=== PATIENT | male | born 1955 | race Caucasian/White ===

== ENCOUNTER 2018-05-01 06:17 | Day surgery (SDC) | payer BC ==
[2018-05-01] MEDS: PHENYLEPHRINE 2.5% OPHTH SOL 2ML OD (06:50)
[2018-05-01] MEDS: TROPICAMIDE 1% OPHTH SOLN 2ML OD (06:50)
[2018-05-01] MEDS: PROPARACAINE 0.5% OPHTH SOL 15ML OD (06:50)
[2018-05-01] MEDS: OFLOXACIN 0.3 % (OCUFLOX) OPTH SOL 5ML OD (06:50)
[2018-05-01] MEDS ORDERED: fentaNYL 100 MCG/2 ML INJECTION (J3010) As Ordered (06:59)
[2018-05-01] MEDS ORDERED: MIDAZOLAM INJ 2 MG/2 ML VIAL (J2250) As Ordered (06:59)
[2018-05-01] MEDS: CEFUROXIME 1MG/0.1ML INTRACAMERAL INJ As Ordered (07:40)
[2018-05-01] MEDS: POVIDONE-IODINE 5% OPHTH PREP SOL 30ML As Ordered (07:40)
[2018-05-01] MEDS: BALANCED SALT IRRIGATION SOLUTION 500ML BAG (FOR OR EYE MACHINE) As Ordered (07:40)
[2018-05-01] MEDS: DUOVISC (0.50ML VISCOAT/0.55ML PROVISC) OPHTH KIT As Ordered (07:40)
[2018-05-01] MEDS: LIDOCAINE 0.75%/EPINEPHRINE 0.025% IN BSS 1ML SYR INTRACAMERAL (OR ONLY) As Ordered (07:41)
== END 2018-05-01 08:45 | disposition home or self-care (01) ==
LOC: M SDC 06:17
DX: H25.11 Age-related nuclear cataract, right eye (principal); I10 Essential (primary) hypertension; E78.5 Hyperlipidemia, unspecified; F17.210 Nicotine dependence, cigarettes, uncomplicated; Z79.899 Other long term (current) drug therapy
CPT/HCPCS: 66984